=== PATIENT | male | born 1985 | race African-American/Black ===

== ENCOUNTER 2016-12-14 01:53 | Emergency (ER) | payer SELFPAY ==
[~2016-12-14] VITALS: Ht 188 cm; Wt 71.0 kg
[2016-12-14] MEDS ORDERED: IBUPROFEN 800MG TABLET PO ONE (04:45)
[2016-12-14 05:30] VITALS: BP 122/71
== END 2016-12-14 07:11 | disposition home or self-care (01) ==
LOC: ER 01:54
DX: S99.821A Other specified injuries of right foot, initial encounter (principal); S99.811A Other specified injuries of right ankle, initial encounter; S99.822A Other specified injuries of left foot, initial encounter; S99.812A Other specified injuries of left ankle, initial encounter; R03.0 Elevated blood-pressure reading, without diagnosis of hypertension; F17.200 Nicotine dependence, unspecified, uncomplicated; F12.90 Cannabis use, unspecified, uncomplicated; V43.62XA Car passenger injured in collision with other type car in traffic accident, initial encounter; Y93.89 Activity, other specified; Y99.8 Other external cause status; Y92.410 Unspecified street and highway as the place of occurrence of the external cause; Z98.890 Other specified postprocedural states
CPT/HCPCS: 29515; 73610; 73630; 73650; 99284

== ENCOUNTER 2018-06-22 06:07 | Emergency (ER) | payer MEDICAID ==
[~2018-06-22] VITALS: Ht 188 cm; Wt 75.0 kg
[2018-06-22 06:35] VITALS: BP 123/77
[2018-06-22] MEDS ORDERED: IBUPROFEN 800MG TABLET PO ONE (06:45)
[2018-06-22 09:09] LABS: CLARITY URINE CLEAR (CLEAR); COLOR URINE YELLOW (YELLOW); KETONES URINE 2+ (NEGATIVE); LEUKOCYTE ESTERASE URINE NEGATIVE (NEGATIVE); NITRITE URINE NEGATIVE (NEGATIVE); OCCULT BLOOD URINE NEGATIVE (NEGATIVE); PROTEIN URINE NEGATIVE (NEGATIVE); SPECIFIC GRAVITY URINE 1.026 (1.005-1.030); UROBILINOGEN URINE 0.2 E.U./dL (0.2-1.0)
[2018-06-22] MEDS ORDERED: ACETAMINOPHEN 325MG TABLET PO ONE (09:30)
== END 2018-06-22 11:01 | disposition home or self-care (01) ==
LOC: ER 06:07
DX: S62.393A Other fracture of third metacarpal bone, left hand, initial encounter for closed fracture (principal); F32.9 Major depressive disorder, single episode, unspecified; F17.200 Nicotine dependence, unspecified, uncomplicated; V43.52XA Car driver injured in collision with other type car in traffic accident, initial encounter; Y93.89 Activity, other specified; Y92.410 Unspecified street and highway as the place of occurrence of the external cause
CPT/HCPCS: 29125; 73130; 99284